=== PATIENT | female | born 1945 | race Two or more races ===

== ENCOUNTER 2017-10-28 15:47 | Outpatient (CLI) | payer OTHER ==
[~2017-10-28 15:47] MED LIST: ALLERCLEAR D-21 EACH; BACLOFEN10 MG PO; BENADRYL25 MG; BUSPAR PO; CATAFLAM50 MG PO; CLONAZEPAM0.5 MG; DEPO-MEDROL40 MG/ML IJ; DICLOFENAC POTA50 MG PO; GABAPENTIN400 MG PO; IBUPROFEN800 MG PO; LACTAID3000 UNI1; LIOTHYRONINE PO; NAPR500T14 PO; PROTONIX40 MG; SPIRONOLACT/HCT1 TAB; SYNTHROID50 MCG; TERAZOSIN HCL2 M1; VOLTAREN100 GM TOP; WELLBUTRIN SR150 MG; ZANAFLEX4 MG PO; ZANTAC150 M3
[2017-11-03] MEDS ORDERED: NAPR500T14 PO (13:38)
[2017-11-03] MEDS ORDERED: BACLOFEN10 MG PO (13:38)
[2017-11-03] MEDS ORDERED: PROTONIX40 MG PO (13:39)
[2017-11-03] MEDS ORDERED: ZANTAC150 M3 PO (13:40)
== END 2017-10-28 15:54 | disposition home or self-care (01) ==
LOC: RAD 15:47
DX: M25.561 Pain in right knee (principal); M25.562 Pain in left knee

== ENCOUNTER 2020-11-28 14:25 | Outpatient (CLI) | payer OTHER ==
[~2020-11-28 14:25] MED LIST changes: +PROTONIX40 MG PO; +ZANTAC150 M3 PO
== END 2020-11-28 14:26 | disposition home or self-care (01) ==
LOC: NUCLEAR 14:25
PROVIDERS: ATTEND Internal Medicine Endocrinology, Diabetes & Metabolism
DX: M81.0 Age-related osteoporosis without current pathological fracture (principal)

== ENCOUNTER 2020-11-28 14:58 | Outpatient (CLI) | payer OTHER | END 2020-11-28 15:06 | disposition home or self-care (01) | LOC: RAD 14:58 | PROVIDERS: ATTEND Orthopaedic Surgery | DX: M25.561 Pain in right knee (principal); M25.562 Pain in left knee ==

== ENCOUNTER 2022-07-29 01:55 | Inpatient (IN) | payer OTHER ==
[~2022-07-29] VITALS: Ht 152.4 cm; Wt 61.7 kg
[2022-07-29] MEDS ORDERED: EZALLOR SPRINKL10 MG PO (02:22)
== END 2022-08-18 15:22 | disposition home or self-care (01) | DRG 329 ==
LOC: ER 01:55 → SURH 14:08
PROVIDERS: Surgery; ADMIT Internal Medicine; ATTEND Internal Medicine
PROC: 0YQ70ZZ Repair Right Femoral Region, Open Approach (ICD-10-PCS; 2022-07-29)
PROC: BW2110Z Computerized Tomography (CT Scan) of Abdomen and Pelvis using Low Osmolar Contrast, Unenhanced and Enhanced (ICD-10-PCS; 2022-07-29)
PROC: 0DB80ZZ Excision of Small Intestine, Open Approach (ICD-10-PCS; principal; 2022-07-29 16:00)
PROC: 02HV33Z Insertion of Infusion Device into Superior Vena Cava, Percutaneous Approach (ICD-10-PCS; 2022-07-31)
PROC: BW2110Z Computerized Tomography (CT Scan) of Abdomen and Pelvis using Low Osmolar Contrast, Unenhanced and Enhanced (ICD-10-PCS; 2022-07-31)
PROC: BW2110Z Computerized Tomography (CT Scan) of Abdomen and Pelvis using Low Osmolar Contrast, Unenhanced and Enhanced (ICD-10-PCS; 2022-08-05)
PROC: 0DB80ZZ Excision of Small Intestine, Open Approach (ICD-10-PCS; 2022-08-08)
PROC: 0DN80ZZ Release Small Intestine, Open Approach (ICD-10-PCS; 2022-08-08)
DX: K41.30 Unilateral femoral hernia, with obstruction, without gangrene, not specified as recurrent (principal); K55.011 Focal (segmental) acute (reversible) ischemia of small intestine; K56.2 Volvulus; K40.30 Unilateral inguinal hernia, with obstruction, without gangrene, not specified as recurrent; E87.1 Hypo-osmolality and hyponatremia; T81.41XA Infection following a procedure, superficial incisional surgical site, initial encounter; K56.0 Paralytic ileus; E87.6 Hypokalemia; E83.42 Hypomagnesemia; R19.7 Diarrhea, unspecified; K57.30 Diverticulosis of large intestine without perforation or abscess without bleeding; I10 Essential (primary) hypertension; E03.8 Other specified hypothyroidism

== ENCOUNTER → 2022-09-04 | Emergency (ER) | payer OTHER ==
[~2022-09-04] VITALS: Ht 154.9 cm; Wt 59.0 kg
[~2022-09-04] MED LIST changes: +EZALLOR SPRINKL10 MG PO
== END | disposition home or self-care (01) ==
LOC: ER 04:20
DX: N39.0 Urinary tract infection, site not specified (principal); B96.20 Unspecified Escherichia coli [E. coli] as the cause of diseases classified elsewhere; Z91.011 Allergy to milk products; Z91.013 Allergy to seafood; I10 Essential (primary) hypertension; E11.9 Type 2 diabetes mellitus without complications; Z79.84 Long term (current) use of oral hypoglycemic drugs; F41.8 Other specified anxiety disorders

== ENCOUNTER 2024-06-29 17:21 | Emergency (ER) | payer OTHER ==
[~2024-06-29] VITALS: Ht 152.4 cm; Wt 79.4 kg
[2024-06-29] MEDS ORDERED: CHILDREN'S ASPI81 MG (17:34)
[2024-06-29] MEDS ORDERED: 0.9 % SODIUM CHLORIDE 1,000 ML IV SCH (18:00)
[2024-06-29 18:33] LABS: HEMATOCRIT 42.8 % (36.0-45.00); HEMOGLOBIN 14.3 g/dL (12.0-15.00); MEAN CELL VOLUME 91.8 fL (80.00-100.00); MEAN CORPUSCULAR HEMOGLOBIN 30.8 pg (27.00-32.0); MEAN CORPUSCULAR HGB CONC 33.5 g/dl (32.0-36.0); PLATELET COUNT 323 K/uL (150-450); RED BLOOD COUNT 4.66 M/uL (4.00-6.00); RED CELL DISTRIBUTION WIDTH 13.7 % (11.5-14.5)
[2024-06-29 18:52] LABS: ALBUMIN 3.5 gm/dL (3.4-5.0); BILIRUBIN TOTAL 0.42 mg/dL (0.3-1.2); CALCIUM 9.6 mg/dL (8.5-10.1); CREATININE SERUM 1.34 mg/dL (0.55-1.02); GFR 38.25; GLOBULINA 4.1 G/DL (2.4-3.5); POTASSIUM 3.38 mEq/L (3.5-5.1); TOTAL PROTEIN 7.6 gm/dL (6.4-8.2)
== END 2024-06-29 20:40 | disposition home or self-care (01) ==
LOC: ER 17:21
PROVIDERS: General Practice
DX: R55 Syncope and collapse (principal); I10 Essential (primary) hypertension; Z91.011 Allergy to milk products; Z91.013 Allergy to seafood
CPT/HCPCS: 36415; 70450; 93005; 96365; 96366; 99284; J7030